=== PATIENT | male | born 1970 | race Caucasian/White ===

== ENCOUNTER → 2022-10-06 | Outpatient (CLI) | payer BC ==
--- NOTE | 2022-10-06 11:59 | NM ---
EXAMINATION TYPE: NM stress cardiolite complete DATE OF EXAM: 10/06/2022 COMPARISON: NONE HISTORY: Chest pain TECHNIQUE: After the intravenous administration of 9.42 mCi Tc 99m Sestamibi - Rest images obtained 45 minutes post injection. The patient exercised using a ARELI protocol and 1 minute prior to peak exercise was injected with 25.8 mCi Tc 99m Sestamibi - Stress images obtained 15 minutes post injecti on. FINDINGS: Targeted heart rate was achieved during performance of the study. Review of stress and rest SPECT amilcar ges demonstrates small area of reversible perfusion abnormality inferior wall. Areas of fixed defect noted cardiac apex and posterior wall near the base. Gated analysis shows normal wall motion with an estimated left ventricular ejection fraction of 48 %. IMPRESSION: I cannot exclude a small area of reversible ischemia involving the inferior wall.
--- NOTE | 2022-10-06 16:30 | CA ---
Exercise Nuclear Stress Test Report Name: Sanchez Edwards Exam Date: 10/06/2022 09:17 Exam Location: [facility] Stress Ht (in): 72 Wt (lb): 218 BSA: 2.21 Ordering Phys: Nitza Irwin DO Referring Phys: Hui Amadro PAC Technologist: Rowdy Patricia Age: 52 Gender: M : 1970 Procedure CPT: Indications: R07.9 R06.09 ICD-10 Codes: Patient History: Medications: NONE Meds past 24 hrs: Pretest Chest Pain: STRESS TEST Martín Protocol Exercise Duration (min:sec): 10:[address] Depressions (mm): Angina Score: Flynn Score: Resting HR (bpm): 68 Peak HR (bpm): 153 Resting BP (mmHg): 149 / 92 Peak BP (mmHg): 242 / 88 MPHR: 166 Target HR: 141 % MPHR: 92 METS: 11.9 Total Dose: Peak Dose: Atropine: Double Product: 41249 BP Response: Stress Termination: Reached target heart rate Stress Symptoms: NONE Stress Summary: ECG ANALYSIS Resting ECG: Stress ECG: CONCLUSIONS Excellent exercise tolerance Normal EKG in response to exercise Dr. Alexandre Betancourt MD (Electronically Signed) Final Date: 06 October 2022 16:29
== END | disposition home or self-care (01) ==
LOC: RADNMMAIN 07:55
PROVIDERS: ATTEND Family Medicine
DX: R07.9 Chest pain, unspecified (principal); R06.09 Other forms of dyspnea
CPT/HCPCS: 93017; 78452; A9500

== ENCOUNTER 2022-11-24 06:18 | Day surgery (SDC) | payer BC ==
[2022-11-22 12:18] VITALS: BMI 29.5
[2022-11-24] MEDS ORDERED: ALPRAZolam 0.25 MG TAB PO PRN (06:23)
[2022-11-24] MEDS ORDERED: ALPRAZolam 0.5 MG TAB PO PRN (06:23)
[2022-11-24] MEDS ORDERED: ATORVASTATIN 80 MG TAB PO STA (06:23)
[2022-11-24] MEDS ORDERED: HEPARIN SODIUM,PORCINE 10,000 UNIT in SODIUM CHLORIDE 0.9% 1,000 ML IRRIGATION PRN (06:23)
[2022-11-24] MEDS ORDERED: ASPIRIN 325 MG TAB PO STA (06:23)
[2022-11-24] MEDS ORDERED: NITROGLYCERIN SL TABS 0.4 MG TAB SUBLINGUAL PRN (06:23)
[2022-11-24] MEDS ORDERED: HEPARIN SODIUM,PORCINE 2,500 UNIT in SODIUM CHLORIDE 0.9% 250 ML IRRIGATION PRN (06:23)
[2022-11-24] MEDS ORDERED: SODIUM CHLORIDE 0.9% 1,000 ML in EMPTY BAG 1 BAG IV SCH (06:23)
[2022-11-24 06:53] VITALS: RESP 16; TEMP 98.8
[2022-11-24] MEDS ORDERED: VERAPAMIL 2.5 MG/ML 2 ML AMP ONE (07:21)
[2022-11-24] MEDS ORDERED: fentaNYL (PF) 50 MCG/ML 2 ML AMP ONE (07:21)
[2022-11-24] MEDS ORDERED: MIDAZOLAM 2 MG/2 ML VIAL IV ONE ×2 (07:33→07:42)
[2022-11-24] MEDS ORDERED: fentaNYL (PF) 50 MCG/ML 2 ML AMP IV ONE (07:33)
[2022-11-24] MEDS ORDERED: LIDOCAINE 1% INJ 10MG/ML (5 ML VIAL-PF) SQ ONE (07:36)
[2022-11-24] MEDS ORDERED: VERAPAMIL SYRINGE (5 MG/10 ML) INTRAARTER ONE (07:42)
[2022-11-24] MEDS ORDERED: HEPARIN SODIUM 1,000 UN/ML (10ML VL) IV ONE (07:44)
[2022-11-24] MEDS ORDERED: IOPAMIDOL-370 125ML BTL INJ ONE (08:03)
[2022-11-24] MEDS ORDERED: IOPAMIDOL-370 100ML BTL INJ ONE (08:14)
[2022-11-24 08:41] VITALS: PULSE 52
[2022-11-24 08:57] VITALS: BP 129/83
--- NOTE | 2022-11-24 22:24 | CC ---
CARDIAC CATHETERIZATION REPORT INDICATIONS: This is a 52-year-old gentleman who was initially referred to us for chest pain and an abnormal stress test that showed reversible perfusion defect involving inferior wall. Due to this, he was advised to undergo cardiac catheterization. He had good exercise tolerance and walked for about 10 minutes on treadmill without any EKG changes. PROCEDURE NOTE: After obtaining informed consent, left heart catheterization and coronary angiogram were performed via the right radial artery using standard Kaden catheters. Right coronary artery was engaged using a size 4 catheter and the left coronary artery was engaged both using 3.5 and size 4 Kaden catheters. The patient tolerated the procedure well without any obvious immediate complications. The patient received moderate conscious sedation. Total sedation time was 31 minutes. He received 5 mg of verapamil and 5000 units of heparin per protocol. The right radial artery access was obtained using modified Seldinger technique. A 6-Green[place] sheath was placed. Catheters and wires were floated into the ascending aorta under fluoroscopic guidance. FINDINGS: 1. Right coronary artery is a large dominant vessel and is free of significant stenosis. 2. Left main coronary artery is a large vessel and is free of stenosis. It divides into left anterior descending coronary artery and circumflex coronary artery. 3. Circumflex coronary artery and its branches are free of significant disease. LAD shows a 50% atherosclerotic plaque in the proximal portion. CONCLUSION: 1. Normal right coronary artery. 2. False-positive nuclear scan. 3. Moderate stenosis involving proximal LAD. PLAN: The patient's symptoms could be related to the LAD lesion. We will treat him with aspirin, nitrates, beta blockers, statins and see how his symptoms evolve. If he continues to be symptomatic, I will bring him back and consider an IFR of the lesion in the LAD and if necessary, percutaneous revascularization of the same, but the patient does not have any ischemia in the LAD distribution. I reviewed angiographic data with the patient and his at length. They understand and are in agreement with the plan. MMODL / IJN: [id number] /
== END 2022-11-24 12:38 | disposition home or self-care (01) ==
LOC: CATHCVL 06:18
PROVIDERS: ATTEND Internal Medicine Cardiovascular Disease
DX: I25.10 Atherosclerotic heart disease of native coronary artery without angina pectoris (principal)
CPT/HCPCS: 93458; C1769; C1894; J2250; J2001; J3010; J1644; Q9967 ×2